=== PATIENT | female | born 1970 | race Caucasian/White ===

== ENCOUNTER 2020-07-26 06:28 | Day surgery (SDC) | payer OTHER ==
[~2020-07-26] VITALS: Ht 165.1 cm; Wt 74.8 kg
[2020-07-26 07:17] VITALS: BP 115/70
[2020-07-26 14:00] VITALS: BP 1044/77
== END 2020-07-26 12:05 | disposition home or self-care (01) ==
LOC: DS 06:28
PROVIDERS: ATTEND Internal Medicine
DX: K80.50 Calculus of bile duct without cholangitis or cholecystitis without obstruction (principal); K76.0 Fatty (change of) liver, not elsewhere classified; E03.9 Hypothyroidism, unspecified; Z83.3 Family history of diabetes mellitus; Z90.49 Acquired absence of other specified parts of digestive tract; Z98.891 History of uterine scar from previous surgery; Z90.710 Acquired absence of both cervix and uterus
CPT/HCPCS: 43262; C1769; J1610; J2250; J2405; J3010; J7120; Q9967